=== PATIENT | male | born 1965 | race Caucasian/White ===

== ENCOUNTER 2020-01-20 09:50 | Outpatient (CLI) | payer OTHER ==
[2020-01-20 10:00] LABS: Calcium 8.9 mg/dL (7.8-10.44); Chloride 103 mmol/L (98-107); Glucose 91 mg/dL (70-105); Potassium 4.1 mmol/L (3.5-5.1); Sodium 139 mmol/L (136-145)
[2020-01-20 10:02] LABS: Calc. Creatinine Clearance 0 mL/min (70-130); Carbon Dioxide 24 mmol/L (22-29)
[2020-01-20 10:03] LABS: Anion Gap 16 mmol/L (10-20); BUN (Urea Nitrogen) 9 mg/dL (8.4-25.7)
== END 2020-01-20 09:51 | disposition home or self-care (01) ==
LOC: NAV LAB 09:50
PROVIDERS: ATTEND Pathology Anatomic Pathology & Clinical Pathology
DX: Z00.00 Encounter for general adult medical examination without abnormal findings (principal)
CPT/HCPCS: 80048

== ENCOUNTER 2020-06-21 11:08 | Outpatient (CLI) | payer OTHER ==
[2020-06-21 17:22] LABS: Anion Gap 15 mmol/L (10-20); Cardiac Risk 4.1 (Less than 4.5); LDL Cholesterol, Calculated 116 mg/dL
[2020-06-21 18:44] LABS: Chloride 105 mmol/L (98-107); Potassium 4.5 mmol/L (3.5-5.1); Sodium 140 mmol/L (136-145)
[2020-06-21 18:45] LABS: Calcium 9.3 mg/dL (7.8-10.44)
[2020-06-21 18:46] LABS: Glucose 87 mg/dL (70-105); Triglycerides 112 mg/dL (Less than 150)
[2020-06-21 18:47] LABS: Carbon Dioxide 21 mmol/L (22-29)
[2020-06-21 18:49] LABS: Calc. Creatinine Clearance 0 mL/min (70-130)
[2020-06-21 18:50] LABS: BUN (Urea Nitrogen) 12 mg/dL (8.4-25.7)
[2020-06-21 18:51] LABS: Cholesterol 183 mg/dl (< 200 Desired); HDL Cholesterol 44 mg/dL (>60 Neg Risk)
== END 2020-06-21 11:09 | disposition home or self-care (01) ==
LOC: NAV LAB 11:08
PROVIDERS: ATTEND Pathology Anatomic Pathology & Clinical Pathology
DX: Z00.00 Encounter for general adult medical examination without abnormal findings (principal)
CPT/HCPCS: 80048; 80061

== ENCOUNTER 2021-01-13 10:12 | Emergency (ER) | payer MEDICARE, SELFPAY ==
[~2021-01-13 10:12] MED LIST: Iopamidol 370 76% 100 ML VIAL ONE
[2021-01-13 10:55] LABS: #Basophils 0.1 thou/uL (0.0-0.2); #Lymphocytes 1.2 thou/uL (1.20-3.40); #Monocytes 1.3 thou/uL (0.11-0.59); #Neutrophils 12.2 thou/uL (1.40-6.50); %Basophils 0.4 % (0.0-1.0); %Eosinophils 0.2 % (0.0-10.0); %Lymphocytes 8.1 % (21.0-51.0); %Monocytes 8.8 % (0.0-10.0); %Neutrophils 82.6 % (42.0-75.0); Hemoglobin 14.6 g/dL (14.0-18.0); Mean Corpuscular HGB CONC 33.2 g/dL (32.0-36.0); Mean Corpuscular Hemoglobin 30.4 pg (27.0-31.0); Mean Corpuscular Volume 91.8 fL (78.0-98.0); Mean Platelet Volume 8.3 fL (7.4-10.4); Platelet Count 196 thou/uL (130-400); RBC Distribution Width 12.6 % (11.5-14.5); White Blood Cell (WBC) Count 14.7 thou/uL (4.8-10.8)
[2021-01-13 11:10] LABS: ALT (SGPT) 21 U/L (8-55); AST (SGOT) 20 U/L (5-34); Albumin 4.2 g/dL (3.5-5.0); Alkaline Phosphatase 67 U/L (40-110); Anion Gap 16 mmol/L (10-20); BUN (Urea Nitrogen) 6 mg/dL (8.4-25.7); Calc. Creatinine Clearance 0 mL/min (70-130); Calcium 9.4 mg/dL (7.8-10.44); Carbon Dioxide 21 mmol/L (22-29); Chloride 103 mmol/L (98-107); Globulin 3.1 g/dL (2.4-3.5); Glucose 108 mg/dL (70-105); Lipase 10 U/L (8-78); Protein, Total 7.3 g/dL (6.0-8.3); Sodium 136 mmol/L (136-145)
[2021-01-13] MEDS ORDERED: Sodium Chloride 0.9% 100 ML ONE (13:19)
[2021-01-13] MEDS ORDERED: Piperacillin/Tazobactam 4.5 GM VIAL ONE (13:19)
[2021-01-17 15:32] LABS: SARS-CoV-2 NAA Rapid Test Not Detected (NotDetected)
== END 2021-01-13 14:15 | disposition short-term general hospital (02) ==
LOC: NAV ERS 10:12
DX: K35.80 Unspecified acute appendicitis (principal); Z20.822 Contact with and (suspected) exposure to COVID-19; Z79.01 Long term (current) use of anticoagulants
CPT/HCPCS: 74177; 80053; 83690; 85025; 93005; 96365; J2543; J3490; Q9967; U0002